=== PATIENT | female | born 1985 | race Caucasian/White ===

== ENCOUNTER 2021-04-04 14:32 | Outpatient (REF) | payer MEDICAID, SELFPAY ==
--- NOTE | ~2021-04-04 | US_ITS ---
EXAMINATION: US THYROID CLINICAL INFORMATION: Hypothyroidism. COMPARISON: Ultrasound thyroid soft tissues neck 05/31/2015 and 08/25/2012. TECHNIQUE: Linear transducer grayscale and color Doppler examination with attention to the region of the thyroid. FINDINGS: SIZE: Measurements of the thyroid lobes and nodules are given in sagittal, anteroposterior and transverse dimensions respectively. Right Thyroid Lobe: 4.5 x 1.5 x 2.0 cm, volume 7.1 mL. Previously 4.6 x 1.4 x 1.5 cm, volume 5.0 mL. Parenchyma: The gland echotexture is heterogeneous. Thyroid vascularity is normal. Left Thyroid Lobe: 4.6 x 1.2 x 1.8 cm, volume 5.2 mL. Previously 4.5 x 1.4 x 1.5 cm, volume 5.0 mL. Parenchyma: The gland echotexture is heterogeneous. Thyroid vascularity is normal. Isthmus: 0.5 cm in maximum AP dimension. Previously 0.4 cm. Estimated total number of nodules greater than or equal to 1 cm: 0. Accounting Consultant nodules are described as follows: NODES: No lymphadenopathy is seen in the tissue surrounding the thyroid gland. US/US thyroid IMPRESSION: Heterogeneous nonenlarged thyroid gland with no thyroid nodules seen. ACR TI-RADS RECOMMENDATION REFERENCE: Ultrasound-guided fine-needle aspiration, followup ultrasound, no further follow up. * TR1 (0 point) and TR 2 (2 points): No FNA or follow up * TR3 (3 points): FNA if more than or equal to 2.5 cm in maximum dimension, followup ultrasound in 1, 3 and 5 years if 1.5 to 2.4 cm in maximum dimension. * TR4 (4-6 points): FNA if more than or equal to 1.5 cm in maximum dimension, followup ultrasound in 1, 2, 3 and 5 years if 1 to 1.4 cm in maximum dimension. * TR5 (more than or equal to 7 points): FNA if more than or equal to 1 cm in maximum dimension, followup ultrasound every year for 5 years if 0.5 to 0.9 cm in maximum dimension. * TR3, TR4 or TR5 nodules that are below the size threshold for follow up receive no follow up.
== END 2021-04-04 14:33 | disposition home or self-care (01) ==
LOC: HO.US 14:32
PROVIDERS: Visit Provider Internal Medicine
DX: E03.8 Other specified hypothyroidism (principal)
CPT/HCPCS: 76536

== ENCOUNTER 2021-07-09 08:57 | Outpatient (REF) | payer MEDICAID, SELFPAY ==
--- NOTE | ~2021-07-09 | XR_ITS ---
EXAMINATION: XR KNEE, RIGHT CLINICAL INFORMATION: Pain in right knee COMPARISON: None TECHNIQUE: Four views of the right knee. FINDINGS: Mineralization is normal. Alignment is anatomic. No significant joint space narrowing. Minimal marginal osteophytes in the medial compartment. Small suprapatellar effusion. XR/XR knee RT 4V IMPRESSION: Small joint effusion and minimal degenerative changes in the medial compartment.
== END 2021-07-09 08:58 | disposition home or self-care (01) ==
LOC: HO.XRAY 08:57
PROVIDERS: PCP Internal Medicine; Visit Provider Internal Medicine
DX: M25.561 Pain in right knee (principal)
CPT/HCPCS: 73564

== ENCOUNTER → 2022-02-28 08:24 | Outpatient (BNVA) | payer MEDICAID, SELFPAY | PROVIDERS: PCP Internal Medicine; Visit Provider Surgery | DX: K64.4 Residual hemorrhoidal skin tags (principal) | CPT/HCPCS: 99202 ==

== ENCOUNTER → 2022-03-14 11:02 | Outpatient (BNVA) | payer MEDICAID, SELFPAY | PROVIDERS: PCP Internal Medicine; Visit Provider Surgery | DX: K64.4 Residual hemorrhoidal skin tags (principal) | CPT/HCPCS: 99212 ==

== ENCOUNTER 2022-09-27 19:14 | Emergency (ER) | payer MEDICAID, SELFPAY ==
--- NOTE | ~2022-09-27 | CT_ITS ---
EXAMINATION: CT ABDOMEN AND PELVIS WITH CONTRAST CLINICAL INFORMATION: Lower abdominal pain status post . COMPARISON: 04/28/2012 TECHNIQUE: Multidetector volumetric images were obtained from the superior aspect of the liver through the pubic symphysis following administration 85 mL of Omnipaque 350 intravenous contrast. Sagittal and coronal reformatted images were obtained on the technologist's workstation. Oral contrast: No This CT examination was performed using dose optimization techniques as appropriate, variously including the following: *Automated exposure control *Adjustment of mA and/or kV according to patient size (this includes techniques or standardized protocols for targeted exams where dose is matched to indication/reason for exam; i.e. extremities or head) *Use of iterative reconstruction technique DLP: 604 mGy-cm FINDINGS: LUNG BASES: The visualized lung bases are unremarkable. LIVER, GALLBLADDER, AND BILIARY TREE: The liver is normal in size, shape, and attenuation. No biliary ductal dilatation. There are a few hypoattenuating subcentimeter lesions seen in the liver which are too small to fully characterize.. The gallbladder is unremarkable with no evidence of radiopaque gallstones, gallbladder wall thickening, or obvious pericholecystic inflammatory changes. PANCREAS: Unremarkable. SPLEEN: Unremarkable. ADRENAL GLANDS: Unremarkable. KIDNEYS AND URETERS: The kidneys are normal in size, shape, and attenuation. No hydronephrosis, hydroureter, or calculi seen. No perinephric stranding. BLADDER: Unremarkable. GASTROINTESTINAL TRACT: The small and large bowel are unremarkable. The appendix is unremarkable. ABDOMINAL WALL: No significant hernia is appreciated. LYMPH NODES: Normal. VASCULAR: Unremarkable. PELVIC VISCERA: Anteverted uterus. Postgravid appearance of the uterus. No adnexal mass. No significant pelvic free fluid. No free air. OSSEOUS STRUCTURES: No acute or suspicious osseous abnormality. Bilateral L5 pars defects. CT/CT abdomen pelvis w IV con IMPRESSION: 1. No acute findings in the abdomen or pelvis. No inflammatory changes. 2. Postgravid appearance of the uterus. Fleischner guidelines were followed.
[2022-09-27 19:21] VITALS: BP 147/101; PULSE 86; RESP 18; TEMP 36.7; O2SAT 98; BMI 32.9
--- NOTE | 2022-09-27 19:22 | ED_ITS ---
HPI - Abdominal Pain General Chief Complaint: Abdominal Pain <Gianna Morel NP - Last Filed: 09/27/22 19:25> Stated Complaint: UTI? <Gianna Morel NP - Last Filed: 09/27/22 19:25> Time Seen by Provider: 09/27/22 20:33 <Gianna Morel NP - Last Filed: 09/27/22 19:25> Source: patient <SERA Agee - Last Filed: 09/27/22 22:51> Mode of arrival: ambulatory <SERA Agee - Last Filed: 09/27/22 22:51> Limitations: no limitations <SERA Agee - Last Filed: 09/27/22 22:51> History of Present Illness HPI narrative: This is a 37-year-old female past medical history significant for thyroid disease, recent last Friday presenting to the emergency department with complaints of suprapubic abdominal pain/pressure, urinary frequency, urgency, dysuria. Patient tells me she has significant pain and burning after peeing. She tells me this feels like a typical urinary tract infection.Patient is having vaginal bleeding but reports this is been about the same with no increase in bleeding. Denies fevers, chills, back/flank pain, nausea, vomiting, headache, vision changes, dizziness, weakness, chest pain, shortness o f breath. To note patient is currently . <SERA Agee - Last Filed: 09/27/22 22:51> Related Data Home Medications: Home Medications Medication Instructions Recorded Confirmed levothyroxine 50 mcg tablet 50 mcg PO DAILY 02/28/22 03/14/22 vits no.130-ferrous fum 1 tab PO DAILY 02/28/22 03/14/22 27 mg iron-folic acid 800 mcg tablet ( Vitamin) Previous Rx's Medication Instructions Recorded docusate sodium 100 mg capsule 100 mg PO BID #60 caps 03/21/22 lidocaine 5 % topical cream 1 appl topical TID PRN for pain 04/25/22 #15 grams nitrofurantoin 100 mg PO BID 5 days #10 caps 09/27/22 monohydrate/macrocrystals 100 mg capsule (Macrobid) <Gianna Morel NP - Last Filed: 09/27/22 19:25> Allergies/Adverse Reactions: Allergies Allergy/AdvReac Type Severity Reaction Status Date / Time No Known Allergies Allergy Mild UNKNOWN Unverified 03/14/22 11:10 <Gianna Morel NP - Last Filed: 09/27/22 19:25> Review of Systems Review of Systems Constitutional : No Weight loss, No Fever, No Chills, No Fatigue, No Malaise ENT/Mouth : No sore throat, No Rhinorrhea Eyes: No Eye Pain, No Swelling, No Redness Cardiovascular : No Chest Pain, No SOB, No Dyspnea on Exertion, No Orthopnea, No Edema, No Palpitations Respiratory : No Cough, No Sputum, No Wheezing Gastrointestinal : No Nausea, No Vomiting, No Diarrhea, No Constipation, + abdominal Pain, No Hematochezia, No Melena Genitourinary : + Dysuria, + Urinary Frequency, No Hematuria, Musculoskeletal : No joint pain, No Myalgias, No Joint Swelling Skin : No Skin Lesions, No rash Neuro : No Weakness, No Numbness, No Dizziness, No Headache Psych : No Anxiety/Panic, No Depression All other systems reviewed and are negative <SERA Agee - Last Filed: 09/27/22 22:51> Yes all other systems are reviewed and are negative <SERA Agee - Last Filed: 09/27/22 22:51> PMFSH Past Medical History Attestation statement: The following information was validated with the patient. <SERA Agee - Last Filed: 09/27/22 22:51> Source: old records reviewed and nursing notes reviewed <SERA Agee - Last Filed: 09/27/22 22:51> Surgical History: Surgical History H/O section <Gianna Morel NP - Last Filed: 09/27/22 19:25> Social History Social History: Social History Advance Directives: No Advance Directives Information Provided: No <Gianna Morel NP - Last Filed: 09/27/22 19:25> Physical Exam ED Vital Signs: Vital Signs - 24 hr 09/27/22 19:21 Temperature 98.1 F Pulse Rate 86 Respiratory Rate 18 Blood Pressure 147/101 H Pulse Oximetry 98 Oxygen Delivery Method Room Air BMI result Body Mass Index 32.9 <Gianna Morel NP - Last Filed: 09/27/22 19:25> Vital Signs - 24 hr 09/27/22 19:21 Temperature 98.1 F Pulse Rate 86 Respiratory Rate 18 Blood Pressure 147/101 H Pulse Oximetry 98 Oxygen Delivery Method Room Air BMI result Body Mass Index 32.9 Patient is noted to be hypertensive 147/101 <SERA Agee - Last Filed: 09/27/22 22:51> Appearance: Alert.? Oriented X3.? No acute distress.? Head: Normocephalic, atraumatic, no step-offs or deformities Eyes: Pupils equal, round and reactive to light.? ENT: Pharynx normal.? Neck: Normal inspection.? Neck supple.? CVS: Normal heart rate and rhythm.? Pulses normal.? Respiratory: No respiratory distress.? Breath sounds normal.? Abdomen: Soft and nontender.? scar without wound dehiscence, no overlying cellulitis or erythema. Skin: Skin warm and dry.? Normal skin color.? Normal skin turgor.? Extremities: No lower extremity edema.? No calf ttp. 5/5 strength to bilateral upper and lower extremities Back: No midline tenderness, no C-spine tenderness, full range of motion, no CVA tenderness bilaterally Neuro: Oriented X 3.? No motor deficit.? No sensory deficit. CN 2-12 intact <SERA Agee - Last Filed: 09/27/22 22:51> Course Course Course Narrative: This is a rapid medical exam. For additional HPI, ROS, PE each prior pro vider 37-year-old female who is 1 week status post here with lower abdominal discomfort, pain with urination. Patient is having vaginal bleeding but reports this is been about the same with no increase in bleeding. No fever/chills. Will obtain UA, lab. Vitals stable <Gianna Morel NP - Last Filed: 09/27/22 19:25> Reevaluation(s) Reevaluation #1: CBC with slight leukocytosis 12.4, chemistry with no acute electrolyte abnormalities requiring intervention. UA with concerns for infection, patient will be given antibiotics. CT of the abdomen and pelvis pending at this time. <SERA Agee - Last Filed: 09/27/22 22:51> Time: 21:49 <SERA Agee - Last Filed: 09/27/22 22:51> Reevaluation #2: CT of the abdomen pelvis with no acute findings in the abdomen or pelvis, no inflammatory changes. Post gravid appearance of the uterus. Patient will be discharged home on Macrobid for UTIs this is safe in breast-feeding. Educated patient on diagnosis and treatment plan, answered all question, patient verbalizes understanding. At this time patient will be discharged home, advised to return with new or worsening symptoms. Educated on worrisome signs and symptoms and when to return. At this time I feel comfortable discharge home. <SERA Agee - Last Filed: 09/27/22 22:51> Time: 22:51 <SERA Agee - Last Filed: 09/27/22 22:51> Medical Decision Making Medical Decision Making MDM Narrative: 2100 37-year-old female presents with UTI like symptoms, had a done last Friday at [facility]. Is currently . Denies fevers and chills and flank pain. Physical exam with suprapubic tenderness on palpation. CVA tenderness negative bilaterally. Patient well-appearing. scar without wound dehiscence, no overlying cellulitis or erythema. Concerns for UTI versus cystitis. Patient's lower abdominal pain likely s econdary to UTI. Will rule out postop seroma however. No signs of pyelonephritis on exam. Patient's vaginal bleeding likely normal secondary to . Plans labs, urine, imaging. <SERA Agee Last Filed: 09/27/22 22:51> Differential Diagnosis Differential Diagnoses: The differential diagnosis associated with the presentation includes <SERA Agee Last Filed: 09/27/22 22:51> Concerns for UTI versus cystitis. Patient's lower abdominal pain likely secondary to UTI. Will rule out postop seroma however. No signs of pyelonephritis on exam. <SERA Agee - Last Filed: 09/27/22 22:51> Lab Data Result Diagrams: 09/27/22 19:40 09/27/22 19:40 <Gianna Morel NP - Last Filed: 09/27/22 19:25> Labs: Lab Results 09/27/22 09/27/22 09/27/22 Range/Units 19:40 19:40 19:46 WBC 12.4 H (4.8-10.8) X10*3/uL RBC 5.16 (4.20-5.50) X10*6/uL Hgb 14.4 (12.0-16.0) g/dl Hct 41.9 (37.0-47.0) % MCV 81.2 (80.0-98.0) fL MCH 27.9 (27.0-33.0) pg MCHC 34.4 (31.0-35.0) g/dl RDW 13.1 (11.0-16.0) % Plt Count 465 H (160-400) X10*3/uL MPV 9.7 (9.4-12.3) fL Immature Gran % (Auto) 0.6 H (0.0-0.4) % Neut % (Auto) 70.1 (45-73) % Lymph % (Auto) 19.4 L (20-40) % Hartley % (Auto) 6.0 (2-11) % Eos % (Auto) 3.0 (0-4) % Baso % (Auto) 0.9 (0-2) % Lymph # (Auto) 2.4 (1.2-4.9) X10*3/uL Hartley # (Auto) 0.8 (0.1-1.2) X10*3/uL Eos # (Auto) 0.4 (0.0-0.4) X10*3/uL Baso # (Auto) 0.1 (0.0-0.2) X10*3/uL Abs Immat Gran (auto) 0.07 H (0.00-0.03) X10*3/uL Absolute Neuts (auto) 8.7 H (2.0-8.3) x10*3/uL Absolute Nucleated RBC 0.000 (0.0-0.012) X10*3/uL Nucleated RBC % (auto) 0.0 (0.0-0.2) /100WBC Sodium 142 (135-145) mmol/L Potassium 4.6 (3.3-5.1) mmol/L Chloride 108 (96-108) mmol/L Carbon Dioxide 25 (22-29) mmol/L Anion Gap 14 (12-20) BUN 17 H (9-16) mg/dL Creatinine 0.76 (0.5-1.4) mg/dL Estim Creat Clear Calc 101.3 Estimated GFR > 60 Random Glucose 96 (60-115) mg/dL Calcium 9.6 (8.4-10.2) mg/dL Urine Color Yellow Urine Appearance Clear Urine pH 6.5 (5.0-9.0) Ur Specific [place] 1.015 (1.005-1.025) Urine Protein Negative (Neg-Trace) mg/dL Urine Glucose (UA) Negative (Negative) mg/dL Urine Ketones Negative (Negative) mg/dL Urine Blood Large (3+) H (Negative) Urine Nitrite Negative (Negative) Ur Leukocyte Esterase Large (3+) H (Negative) Urine RBC >20 H (0-2) /HPF Urine WBC >50 H (0-5) /HPF Ur Squamous Epith Cells 3-5 (0-2) /HPF Urine Bacteria None Seen (None Seen) Hyaline Casts 0-2 (0-2) /LPF <Gianna Morel, THEORETICAL PHYSICS TEACHER - Last Filed: 09/27/22 19:25> Lab Results 09/27/22 09/27/22 09/27/22 Range/Units 19:40 19:40 19:46 WBC 12.4 H (4.8-10.8) X10*3/uL RBC 5.16 (4.20-5.50) X10*6/uL Hgb 14.4 (12.0-16.0) g/dl Hct 41.9 (37.0-47.0) % MCV 81.2 (80.0-98.0) fL MCH 27.9 (27.0-33.0) pg MCHC 34.4 (31.0-35.0) g/dl RDW 13.1 (11.0-16.0) % Plt Count 465 H (160-400) X10*3/uL MPV 9.7 (9.4-12.3) fL Immature Gran % (Auto) 0.6 H (0.0-0.4) % Neut % (Auto) 70.1 (45-73) % Lymph % (Auto) 19.4 L (20-40) % Hartley % (Auto) 6.0 (2-11) % Eos % (Auto) 3.0 (0-4) % Baso % (Auto) 0.9 (0-2) % Lymph # (Auto) 2.4 (1.2-4.9) X10*3/uL Hartley # (Auto) 0.8 (0.1-1.2) X10*3/uL Eos # (Auto) 0.4 (0.0-0.4) X10*3/uL Baso # (Auto) 0.1 (0.0-0.2) X10*3/uL Abs Immat Gran (auto) 0.07 H (0.00-0.03) X10*3/uL Absolute Neuts (auto) 8.7 H (2.0-8.3) x10*3/uL Absolute Nucleated RBC 0.000 (0.0-0.012) X10*3/uL Nucleated RBC % (auto) 0.0 (0.0-0.2) /100WBC Sodium 142 (135-145) mmol/L Potassium 4.6 (3.3-5.1) mmol/L Chloride 108 (96-108) mmol/L Carbon Dioxide 25 (22-29) mmol/L Anion Gap 14 (12-20) BUN 17 H (9-16) mg/dL Creatinine 0.76 (0.5-1.4) mg/dL Estim Creat Clear Calc 101.3 Estimated GFR > 60 Random Glucose 96 (60-115) mg/dL Calcium 9.6 (8.4-10.2) mg/dL Urine Color Yellow Urine Appearance Clear Urine pH 6.5 (5.0-9.0) Ur Specific [place] 1.015 (1.005-1.025) Urine Protein Negative (Neg-Trace) mg/dL Urine Glucose (UA) Negative (Negative) mg/dL Urine Ketones Negative (Negative) mg/dL Urine Blood Large (3+) H (Negative) Urine Nitrite Negative (Negative) Ur Leukocyte Esterase Large (3+) H (Negative) Urine RBC >20 H (0-2) /HPF Urine WBC >50 H (0-5) /HPF Ur Squamous Epith Cells 3-5 (0-2) /HPF Urine Bacteria None Seen (None Seen) Hyaline Casts 0-2 (0-2) /LPF <SERA Agee - Last Filed: 09/27/22 22:51> Medications Administered Discontinued Medications Generic Name Dose Route Start Last Admin Trade Name Freq PRN Reason Stop Dose Admin Iohexol 100 ml 09/27/22 22:19 09/27/22 22:20 Iohexol 350 Mg/Ml 100 Ml Infus..Btl IV 09/27/22 22:20 85 ml ONCE ONE Administration <Gianna Morel NP - Last Filed: 09/27/22 19:25> Medications Administered Discontinued Medications Generic Name Dose Route Start Last Admin Trade Name Freq PRN Reason Stop Dose Admin Iohexol 100 ml 09/27/22 22:19 09/27/22 22:20 Iohexol 350 Mg/Ml 100 Ml Infus..Btl IV 09/27/22 22:20 85 ml ONCE ONE Administration <SERA Agee - Last Filed: 09/27/22 22:51> Discharge Plan Discharge Clinical Impression: UTI (urinary tract infection) <Gianna Morel NP - Last Filed: 09/27/22 19:25> Patient Disposition: Home, Self-Care <Gianna Morel NP - Last Filed: 09/27/22 19:25> Additional Instructions: Take your medications as prescribed. If you were prescribed antibiotics today, it is important that you take your medication to their entirety, do not skip any doses, do not finish them early. Follow-up with your primary care provider this week. Return to the emergency department with new or worsening symptoms. Such as fevers, chills, chest pain, shortness of breath, nausea, vomiting, dizziness, headache, vision changes, lethargy In case of emergency call 911 CT/CT abdomen pelvis w IV con IMPRESSION: 1.? No acute findings in the abdomen or pelvis. No inflammatory changes. 2.? Postgravid appearance of the uterus. ? Fleischner guidelines were followed. <Gianna Morel NP - Last Filed: 09/27/22 19:25> Prescriptions: New nitrofurantoin monohyd/m-cryst [Macrobid] 100 mg capsule 100 mg PO BID 5 Days Qty: 10 0RF Rx Instructions: must administer with a meal/food No Action docusate sodium 100 mg capsule 100 mg PO BID Qty: 60 0RF lidocaine 5 % cream 1 appl topical TID PRN (Reason: for pain) Qty: 15 0RF levothyroxine 50 mcg tablet 50 mcg PO DAILY Vitamin 27 mg iron- 800 mcg tablet 1 tab PO DAILY <Gianna Morel NP - Last Filed: 09/27/22 19:25> Referrals: George Driscoll MD [Primary Care Provider] - 2 days <Gianna Morel NP - Last Filed: 09/27/22 19:25> Stand Alone Forms: Work/School Release <Gianna Morel NP - Last Filed: 09/27/22 19:25>
[2022-09-27 19:47] LABS: MANUAL DIFF FLAG NO
[2022-09-27 19:49] LABS: Basophils Absolute Auto 0.1 X10*3/uL (0.0-0.2); Basophils Percent Auto 0.9 % (0-2); Eosinophils Absolute Auto 0.4 X10*3/uL (0.0-0.4); Hematocrit 41.9 % (37.0-47.0); Hemoglobin 14.4 g/dl (12.0-16.0); Imm Gran Abs Auto 0.07 X10*3/uL (0.00-0.03); Imm Gran Pct Auto 0.6 % (0.0-0.4); Lymphocytes Absolute Auto 2.4 X10*3/uL (1.2-4.9); Lymphocytes Percent Auto 19.4 % (20-40); Mean Corpuscular HGB Conc 34.4 g/dl (31.0-35.0); Mean Corpuscular Hemoglobin 27.9 pg (27.0-33.0); Mean Corpuscular Volume 81.2 fL (80.0-98.0); Mean Platelet Volume 9.7 fL (9.4-12.3); Monocytes Absolute Auto 0.8 X10*3/uL (0.1-1.2); Neutrophils Absolute Auto 8.7 x10*3/uL (2.0-8.3); Neutrophils Percent Auto 70.1 % (45-73); Platelet Count 465 X10*3/uL (160-400); Red Blood Count 5.16 X10*6/uL (4.20-5.50); Red Cell Distribution Width 13.1 % (11.0-16.0); White Blood Count 12.4 X10*3/uL (4.8-10.8)
[2022-09-27 19:52] LABS: Appearance Urine Clear; Color Urine Yellow; Glucose Urine UA Negative (Negative); Leukocyte Esterase Urine Large (3+) (Negative); Nitrite Urine Negative (Negative); PH 6.5 (5.0-9.0); Specific Gravity - Urine 1.015 (1.005-1.025); UMIC TRIGGER UACC YES; Urine Blood Large (3+) (Negative); Urine Ketones Negative (Negative); Urine Protein Negative (Neg-Trace)
[2022-09-27 20:05] LABS: Bacteria Urine None Seen (None Seen); Hyaline Casts Urine 0-2 /LPF (0-2); RBC Urine >20 /HPF (0-2); UACC Culture Trigger YES; WBC Urine >50 /HPF (0-5)
[2022-09-27 20:11] LABS: Anion Gap 14 (12-20); Blood Urea Nitrogen 17 mg/dL (9-16); Calcium 9.6 mg/dL (8.4-10.2); Carbon Dioxide 25 mmol/L (22-29); Chloride 108 mmol/L (96-108); Creatinine Clr Calc Pharmacy 101.3; Estimated Glomerular Filt Rate > 60; Glucose Random 96 mg/dL (60-115); Potassium 4.6 mmol/L (3.3-5.1); Sodium 142 mmol/L (135-145)
[2022-09-27] MEDS: iohexoL 350 MG/ML 100 ML INFUS..BTL IV (22:20)
--- NOTE | 2022-09-27 22:48 | PC.NURSE ---
Pt. resting in room. IV was placed for scan with contrast. Pt. under no apparent distress. Will continue to monitor.
[2022-09-27 22:51] LABS: HCG Quantitative 29 mIU/mL
[2022-09-27] MEDS: Nitrofurantoin Monohyd/M-Cryst 100 MG CAPSULE PO (23:03)
[2022-09-27 23:04] VITALS: BP 133/88; PULSE 86; RESP 18; O2SAT 97
== END 2022-09-27 23:29 | disposition home or self-care (01) ==
PROVIDERS: Nurse Practitioner Family; Physician Assistant; Emergency Provider Emergency Medicine; PCP Internal Medicine
DX: N39.0 Urinary tract infection, site not specified (principal); R35.0 Frequency of micturition; R30.0 Dysuria; Z79.899 Other long term (current) drug therapy
CPT/HCPCS: 36415; 74177; 80048; 81001; 81003; 84702; 85025; 87086; 87088; 87186; 99284; Q9967

== ENCOUNTER 2022-12-24 12:46 | Outpatient (REF) | payer MEDICAID, SELFPAY ==
--- NOTE | ~2022-12-24 | XR_ITS ---
EXAMINATION: XR PELVIS CLINICAL INFORMATION: Pain COMPARISON: None available. TECHNIQUE: AP view of the pelvis. FINDINGS: No acute fracture or dislocation. Joint spaces are maintained. Calcified phleboliths in the pelvis. XR/XR pelvis min 3V IMPRESSION: No acute osseous abnormality.
== END 2022-12-24 12:47 | disposition home or self-care (01) ==
LOC: HO.XRAY 12:46
PROVIDERS: PCP Internal Medicine; Visit Provider Internal Medicine
DX: M54.50 Low back pain, unspecified (principal)
CPT/HCPCS: 72190

== ENCOUNTER 2023-02-26 15:34 | Outpatient (REF) | payer MEDICAID, SELFPAY ==
--- NOTE | ~2023-02-26 | US_ITS ---
EXAMINATION: US THYROID . CLINICAL INFORMATION: Neck swelling, globus sensation, Taisha's thyroiditis. COMPARISON: Ultrasound thyroid 04/04/2021 and 11/01/2020. TECHNIQUE: Linear transducer grayscale and color Doppler examination with attention to the region of the thyroid. FINDINGS: SIZE: Measurements of the thyroid lobes and nodules are given in sagittal, anteroposterior and transverse dimensions respectively. Right Thyroid Lobe: 4.7 x 1.4 x 1.9 cm, volume 6.6 mL. Previously 4.5 x 1.5 x 2.0 cm, volume 7.1 mL. Parenchyma: The gland echotexture is heterogeneous. Thyroid vascularity is increased. Left Thyroid Lobe: 4.7 x 1.2 x 1.8 cm, volume 5.3 mL. Previously 4.6 x 1.2 x 1.8 cm, volume 5.2 mL. Parenchyma: The gland echotexture is heterogeneous. Thyroid vascularity is increased. Isthmus: 0.4 cm in maximum AP dimension. Previously 0.5 cm. Estimated total number of nodules greater than or equal to 1 cm: 0. Theology Professor nodules are described as follows: 1. Location: Right lateral mid. Size: 0.4 x 0.3 x 0.3 cm, volume 0.02 mL. Previously: New since the previous study. Nodule characteristics: Composition: Solid/almost completely solid (2). Echogenicity: Hypoechoic (2). Shape: Not taller than wide (0). Margins: Smooth (0). Echogenic Foci: None (0). ACR TI-RADS total points: 4 ACR TI-RADS category: 4 NODES: No lymphadenopathy is seen in the tissue surrounding the thyroid gland. US/US thyroid IMPRESSION: Heterogeneous hypervascular thyroid which can be seen in the setting of thyroiditis. Subcentimeter TR 4 right thyroid nodule which does not meet criteria for follow-up. ACR TI-RADS RECOMMENDATION REFERENCE: Ultrasound-guided fine-needle aspiration, followup ultrasound, no further follow up. * TR1 (0 point) and TR2 (2 points): No FNA or follow up. * TR3 (3 points): FNA if more than or equal to 2.5 cm in maximum dimension, followup ultrasound in 1, 3 and 5 years if 1.5 to 2.4 cm in maximum dimension. * TR4 (4-6 points): FNA if more than or equal to 1.5 cm in maximum dimension, followup ultrasound in 1, 2, 3 and 5 years if 1 to 1.4 cm in maximum dimension. * TR5 (more than or equal to 7 points): FNA if more than or equal to 1 cm in maximum dimension, followup ultrasound every year for 5 years if 0.5 to 0.9 cm in maximum dimension. * TR3, TR4 or TR5 nodules that are below the size threshold for followup receive no follow up.
== END 2023-02-26 15:35 | disposition home or self-care (01) ==
LOC: HO.HMGCX 15:34
PROVIDERS: PCP Internal Medicine; Visit Provider Nurse Practitioner Primary Care
DX: E06.3 Autoimmune thyroiditis (principal); R09.89 Other specified symptoms and signs involving the circulatory and respiratory systems; R22.1 Localized swelling, mass and lump, neck
CPT/HCPCS: 76536

== ENCOUNTER 2023-05-15 13:06 | Outpatient (REF) | payer MEDICAID, SELFPAY ==
--- NOTE | ~2023-05-15 | XR_ITS ---
EXAMINATION: XR FOOT, RIGHT CLINICAL INFORMATION: Heel pain COMPARISON: None available. TECHNIQUE: AP, lateral, and oblique views of the right foot. FINDINGS: Mineralization is normal. There is no fracture or malalignment. The joint spaces are preserved. No focal soft tissue swelling is seen. There is a small plantar calcaneal spur. XR/XR foot RT min 3V IMPRESSION: Plantar calcaneal spur. The examination is otherwise unremarkable.
== END 2023-05-15 13:07 | disposition home or self-care (01) ==
LOC: HO.XRAY 13:06
PROVIDERS: PCP Internal Medicine; Visit Provider Internal Medicine
DX: M79.671 Pain in right foot (principal)
CPT/HCPCS: 73630

== ENCOUNTER 2023-08-01 14:57 | Outpatient (REF) | payer MEDICAID, SELFPAY ==
[2023-08-01 18:00] LABS: TSH reflex Free T4 1.74 uIU/mL (0.32-4.0)
== END 2023-08-01 14:58 | disposition home or self-care (01) ==
LOC: HO.CHCLDS 14:57
PROVIDERS: Visit Provider Internal Medicine
DX: E06.3 Autoimmune thyroiditis (principal)
CPT/HCPCS: 36415; 84443

== ENCOUNTER 2023-08-12 10:54 | Outpatient (REF) | payer MEDICAID, SELFPAY ==
[2023-08-13 08:30] LABS: HIV AB/AG Nonreactive (Nonreactive); HIV Num 1 0.05 S/CO (0.00-0.99)
== END 2023-08-12 10:55 | disposition home or self-care (01) ==
LOC: HO.CHCLDS 10:54
PROVIDERS: Visit Provider Internal Medicine
DX: J02.9 Acute pharyngitis, unspecified (principal)
CPT/HCPCS: 36415; 87070; 87389

== ENCOUNTER 2023-08-28 12:19 | Outpatient (REF) | payer MEDICAID, SELFPAY ==
[2023-08-28 14:49] LABS: MANUAL DIFF FLAG NO
[2023-08-28 14:56] LABS: Basophils Absolute Auto 0.1 X10*3/uL (0.0-0.2); Basophils Percent Auto 0.7 % (0-2); Eosinophils Absolute Auto 0.2 X10*3/uL (0.0-0.4); Eosinophils Percent Auto 1.8 % (0-4); Hematocrit 41.3 % (37.0-47.0); Imm Gran Abs Auto 0.03 X10*3/uL (0.00-0.03); Imm Gran Pct Auto 0.3 % (0.0-0.4); Lymphocytes Absolute Auto 2.1 X10*3/uL (1.2-4.9); Mean Corpuscular HGB Conc 33.9 g/dl (31.0-35.0); Mean Corpuscular Hemoglobin 26.8 pg (27.0-33.0); Mean Platelet Volume 11.1 fL (9.4-12.3); Monocytes Absolute Auto 0.7 X10*3/uL (0.1-1.2); Monocytes Percent Auto 7.4 % (2-11); Neutrophils Absolute Auto 6.6 x10*3/uL (2.0-8.3); Neutrophils Percent Auto 67.8 % (45-73); Platelet Count 281 X10*3/uL (160-400); Red Blood Count 5.23 X10*6/uL (4.20-5.50); Red Cell Distribution Width 12.8 % (11.0-16.0); White Blood Count 9.7 X10*3/uL (4.8-10.8)
[2023-08-28 15:42] LABS: Erythrocyte Sedimentation Rate 7 MM/HR (0-20)
[2023-08-29 10:54] LABS: Lyme Abs Screen <0.90 index
== END 2023-08-28 12:20 | disposition home or self-care (01) ==
LOC: HO.CHCLDS 12:19
PROVIDERS: Visit Provider Pediatrics
DX: J30.1 Allergic rhinitis due to pollen (principal); S50.861A Insect bite (nonvenomous) of right forearm, initial encounter; W57.XXXA Bitten or stung by nonvenomous insect and other nonvenomous arthropods, initial encounter
CPT/HCPCS: 36415; 85025; 85652; 86617; 86618